=== PATIENT | male | born 2000 | race Caucasian/White ===

== ENCOUNTER 2019-01-14 20:00 | Emergency (ER) | payer BC ==
[~2019-01-14] VITALS: Ht 190.5 cm; Wt 70.0 kg
[~2019-01-14 20:00] MED LIST: ALBUTEROL0.83 MG/ML IH; VENTOLIN0.09 MG IH; ZICAM
[2019-01-14 20:13] VITALS: BP 144/80; TEMP 97.8
[2019-01-14] MEDS ORDERED: DOXYCYCLINE 10100 MG PO (21:53)
[2019-01-14 22:08] VITALS: PULSE 88
== END 2019-01-14 22:00 | disposition home or self-care (01) ==
LOC: COL.ER 20:00
DX: L60.0 Ingrowing nail (principal); L03.032 Cellulitis of left toe

== ENCOUNTER 2020-06-20 23:02 | Emergency (ER) | payer SELFPAY ==
[~2020-06-20] VITALS: Ht 193 cm; Wt 72.7 kg
[~2020-06-20 23:02] MED LIST changes: +DOXYCYCLINE 10100 MG PO
[2020-06-20 23:20] VITALS: BP 117/64; PULSE 69; TEMP 97.8
[2020-06-21] MEDS ORDERED: DOXYCYCLINE 10100 MG PO (00:10)
== END 2020-06-21 00:20 | disposition home or self-care (01) ==
LOC: COL.ER 23:02
DX: L60.0 Ingrowing nail (principal)

== ENCOUNTER 2024-02-12 12:57 | Emergency (ER) | payer OTHER ==
[~2024-02-12] VITALS: Ht 190.5 cm; Wt 72.7 kg
[~2024-02-12 12:57] MED LIST changes: +PREDNISONE20 MG PO
[2024-02-12 13:14] VITALS: TEMP 97.7
[2024-02-12 16:25] VITALS: BP 135/60; PULSE 115
== END 2024-02-12 16:30 | disposition home or self-care (01) ==
LOC: COL.ER 12:57
DX: F15.23 Other stimulant dependence with withdrawal (principal); F17.200 Nicotine dependence, unspecified, uncomplicated